=== PATIENT | female | born 1955 | race Caucasian/White ===

== ENCOUNTER 2019-03-06 11:23 | Emergency (ER) | payer OTHER ==
[2019-03-06 12:38] VITALS: BP 164/83
[2019-03-06] MEDS ORDERED: Albuterol/Ipratropium NEB.SOL* Albuterol 2.5 MG/Ipratropium 0.5 MG 3 ML INH ONE (12:44)
--- NOTE | 2019-03-06 13:06 | UC ---
Respiratory Complaint HPI - HPI Summary HPI Summary: Ill with upper resp cold symptoms for 3 days then today it is more in her chest with a productive cough of yellow sputum. Pt is a smoker, but states she's down to 2 cigarettes a day. - History of Current Complaint Chief Complaint: UCGeneralIllness Stated Complaint: CONGESTION,COUGH Time Seen by Provider: 03/06/19 12:38 Hx Obtained From: Patient ?: No Onset/Duration: Gradual Onset Severity Initially: Mild Severity Currently: Mild Pain Intensity: 0 Character: Cough: Productive Aggravating Factors: Nothing Alleviating Factors: Nothing Associated Signs And Symptoms: Positive: URI, Nasal Congestion - Allergies/Home Medications Allergies/Adverse Reactions: Allergies Allergy/AdvReac Type Severity Reaction Status Date / Time No Known Allergies Allergy Verified 03/06/19 12:38 PMH/Surg Hx/FS Hx/Imm Hx Previously Healthy: Yes - Surgical History Surgical History: Yes Surgery Procedure, Year, and Place: brain surgery 20 years ago. hysterectomy 10 years ago - Family History Known Family History: Positive: Non-Contributory - Social History Alcohol Use: Occasionally Substance Use Type: None Smoking Status (MU): Light Every Day Tobacco Smoker Amount Used/How Often: 2 cigarettes/day Review of Systems All Other Systems Reviewed And Are Negative: Yes Respiratory: Positive: Cough - Productive cough of yellow sputum Is Patient Immunocompromised?: No Physical Exam Triage Information Reviewed: Yes Appearance: Well-Appearing, No Pain Distress, Well-Nourished Vital Signs: Initial Vital Signs Temp 97.2 F 03/06/19 12:32 Pulse 69 03/06/19 12:32 Resp 18 03/06/19 12:32 BP 164/83 03/06/19 12:32 Pulse Ox 98 03/06/19 12:32 Vital Signs Reviewed: Yes Eyes: Positive: Conjunctiva Clear ENT: Positive: Hearing grossly normal, Pharynx normal, TMs normal, Uvula midline Neck: Positive: Supple, Nontender, No Lymphadenopathy Respiratory: Positive: No respiratory distress, No accessory muscle use, Rhonchi , Wheezing - Mild wheezing with forced expiration, scattered mild rhonchi Cardiovascular: Positive: RRR, No Murmur, Pulses Normal, Brisk Capillary Refill Abdomen Description: Positive: Nontender, No Organomegaly, Soft Bowel Sounds: Positive: Present Musculoskeletal Exam: Normal Neurological Exam: Normal Psychological Exam: Normal Skin Exam: Normal Respiratory Course/Dx - Course Course Of Treatment: CXR:FINDINGS: The heart and mediastinum are normal in size and contour. The lungs are grossly clear. There is no evidence of large pleural effusion. Visualized bones are normal for the patient's age. There is no radiographic evidence of free air beneath the diaphragm IMPRESSION: No radiographic evidence of acute cardiopulmonary disease. Pt felt better after the duoneb treatment...will do a prednisone taper and Zpak. - Differential Dx/Diagnosis Provider Diagnosis: Bronchitis Discharge - Sign-Out/Discharge Documenting (check all that apply): Patient Departure All imaging exams completed and their final reports reviewed: Yes - Discharge Plan Condition: Fair Disposition: HOME Prescriptions: Azithromyxin DARIN (NF) [Z-Darin (Zithromax) 250 mg tabs #6] 2 tab PO .TODAY, THEN 1 DAILY #6 tab predniSONE [Prednisone 20 MG TAB] 20 mg PO DAILY 9 Days #18 tablet Patient Education Materials: Acute Bronchitis (ED) Referrals: [facility] [Outside] No Primary Care Phys,NOPCP [Primary Care Provider] - Additional Instructions: Stop smoking, increase fluids, follow up with the clinic if no improvement in 3- 4 days. - Billing Disposition and Condition Condition: FAIR Disposition: Home
== END 2019-03-06 13:44 | disposition home or self-care (01) ==
LOC: UCCORT 11:23
DX: J40 Bronchitis, not specified as acute or chronic (principal); F17.210 Nicotine dependence, cigarettes, uncomplicated
CPT/HCPCS: 71046; 99202; A9270-GY; G0463

== ENCOUNTER 2019-08-22 10:08 | Emergency (ER) | payer MEDICAID, OTHER ==
[2019-08-22 11:42] VITALS: BP 153/81
--- NOTE | 2019-08-22 12:03 | UC ---
Respiratory Complaint HPI - HPI Summary HPI Summary: 63 yo smoker with a 10 day history of productive cough and shortness of breath. No reported fever or chills. She has about a 10 pack year history of smoking with current efforts to stop. She has hx of bronchitis, and past steroid use, has never been dx'd with COPD. Currently lots of travel as her 7 yo grandson has a recurrent brain tumor and her father's health is failing. - History of Current Complaint Chief Complaint: UCRespiratory Stated Complaint: COUGH Time Seen by Provider: 08/22/19 11:52 Hx Obtained From: Patient Onset/Duration: Lasting Days - 1- Timing: Intermittent Episodes Severity Initially: Mild Severity Currently: Moderate Pain Intensity: 0 Character: Cough: Productive Aggravating Factors: Deep Breaths, Recumbent Position Alleviating Factors: Nothing Associated Signs And Symptoms: Positive: URI. Negative: Dyspnea, Hemoptysis - Risk Factors Pulmonary Embolism Risk Factors: Smoking Cardiac Risk Factors: Smoking Pseudomonas Risk Factors: Negative Tuberculosis Risk Factors: Negative - Allergies/Home Medications Allergies/Adverse Reactions: Allergies Allergy/AdvReac Type Severity Reaction Status Date / Time No Known Allergies Allergy Verified 08/22/19 11:39 Home Medications: Home Medications Acetaminophen/Dextromethorphan [Cold & Cough Daytime 1000-30 mg/30Ml] 1 liq PO Q12H PRN 08/22/19 [History Confirmed 08/22/19] PMH/Surg Hx/FS Hx/Imm Hx Previously Healthy: Yes - Surgical History Surgical History: Yes Surgery Procedure, Year, and Place: brain surgery 20 years ago. hysterectomy 10 years ago - Family History Known Family History: Positive: Respiratory Disease - father has COPD, Other - grandson has brain tumor recurrence. - Social History Occupation: Retired Lives: Alone Alcohol Use: Occasionally Substance Use Type: None Smoking Status (MU): Light Every Day Tobacco Smoker Amount Used/How Often: 2 cigarettes/day Review of Systems All Other Systems Reviewed And Are Negative: Yes Constitutional: Positive: Fatigue Skin: Positive: Negative Eyes: Positive: Negative ENT: Positive: Sinus Congestion Respiratory: Positive: Shortness Of Breath - mild at times, mostly when recumbent., Cough Cardiovascular: Negative: Palpitations, Chest Pain Gastrointestinal: Positive: Negative Genitourinary: Positive: Negative Motor: Positive: Negative Neurovascular: Positive: Negative Musculoskeletal: Positive: Negative Neurological: Positive: Negative Psychological: Positive: Negative Is Patient Immunocompromised?: No Physical Exam Triage Information Reviewed: Yes Appearance: No Pain Distress, Ill-Appearing - congested cough, Thin Vital Signs: Initial Vital Signs Temp 98.7 F 08/22/19 11:40 Pulse 54 08/22/19 11:40 Resp 20 08/22/19 11:40 BP 153/81 08/22/19 11:40 Pulse Ox 98 08/22/19 11:40 Eye Exam: Normal ENT: Positive: Pharyngeal erythema, TMs normal Neck: Positive: Supple, Nontender, No Lymphadenopathy Respiratory: Positive: No accessory muscle use, Rhonchi, Expiration - prolonged.. Negative: Wheezing Cardiovascular Exam: Normal Cardiovascular: Positive: RRR, No Murmur Musculoskeletal Exam: Normal Neurological Exam: Normal Psychological Exam: Normal Skin Exam: Normal Respiratory Course/Dx - Course Course Of Treatment: doxycycline and prednisone for bronchitis/hx of smoking. - Differential Dx/Diagnosis Differential Diagnosis/HQI/PQRI: Bronchitis, Laryngitis, Lower Resp Infection Provider Diagnosis: Bronchitis Discharge ED - Sign-Out/Discharge Documenting (check all that apply): Patient Departure All imaging exams completed and their final reports reviewed: No Studies - Discharge Plan Condition: Stable Disposition: HOME Prescriptions: DOXYcycline CAP(*) [DOXYcycline 100MG CAP(*)] 100 mg PO BID #20 cap predniSONE [Prednisone 20 MG TAB] 40 mg PO DAILY #10 tablet Patient Education Materials: Acute Bronchitis (ED) Referrals: No Primary Care Phys,NOPCP [Primary Care Provider] - Additional Instructions: your blood pressure is elevated to 153/81; this could be related to being unwell and fatigued, but please ensure that you have a re-check within a month. Begin use of doxycycline and prednisone for treatment of bronchitis. If you do not see improvement in 3 days, please have a follow up visit for reassessment. At some point, having lung function testing because of your smoking history would give you information on whether you have lung changes related to smoking. - Billing Disposition and Condition Condition: STABLE Disposition: Home
== END 2019-08-22 12:28 | disposition home or self-care (01) ==
LOC: UCCORT 10:08
DX: J40 Bronchitis, not specified as acute or chronic (principal); R09.81 Nasal congestion; F17.210 Nicotine dependence, cigarettes, uncomplicated
CPT/HCPCS: 99212; G0463